=== PATIENT | male | born 1995 | race Caucasian/White ===

== ENCOUNTER 2018-06-25 05:57 | Inpatient (IN) | payer OTHER ==
[2018-06-25] MEDS ORDERED: Ketorolac Tromethamine 30 MG/ML VIAL ONE (06:31)
[2018-06-25] MEDS ORDERED: Bupivacaine/Epinephrine 0.25% 30 ML VIAL ONE (06:37)
[2018-06-25] MEDS ORDERED: Bupivacaine HCl 0.5%/Epinephrine 1:200,000/PF 30 ml Vial ONE (06:37)
[2018-06-25] MEDS ORDERED: Piperacillin/Tazobactam 3.375 GM in Sodium Chloride 0.9% 100 ML IVPB SCH (06:45)
--- NOTE | 2018-06-25 06:52 | HP ---
HISTORY OF PRESENT ILLNESS: Jaquan James is a 23-year-old male patient, [employer], suffering upper abdominal pain localizing to his right lower quadrant yesterday morning, pre sented to [facility]. CAT scan revealed changes consistent with appendicitis. White count slightly elevated. He was given intravenous antibiotics, fluids overnight and transferred this morning for laparoscopic video appendectomy. He spiked a fever to 102 degrees this morning. ALLERGIES: None. TOBACCO: None. ALCOHOL: Rarely. MEDICATIONS: None. PAST SURGICAL HISTORY: Tonsillectomy. PAST MEDICAL HISTORY: Noncontributory. REVIEW OF SYSTEMS: Ten-point noncontributory. PHYSICAL EXAMINATION: VITAL SIGNS: Temperature 98 degrees, heart rate 93, respiratory rate 16. HEAD, EYES, EARS, NOSE AND THROAT: Unremarkable. LUNGS: Clear to auscultation. CARDIAC: Regular rate and rhythm without murmur or gallop. ABDOMEN: Soft, tenderness in the right lower quadrant with guarding and rebound. Positive Rovsing s ign. EXTREMITIES: Unremarkable. ASSESSMENT AND PLAN: Acute appendicitis. Recommend laparoscopic video appendectomy. Risk of infect ion, bleeding, visceral injury explained, open operation risk explained, he consents.
[2018-06-25] MEDS ORDERED: Fentanyl 100 MCG/2 ML VIAL ONE (07:07)
[2018-06-25] MEDS ORDERED: Midazolam HCl 2 mg/2 ml Vial ONE (07:38)
[2018-06-25] MEDS ORDERED: Ondansetron HCl/PF 4 MG/2 ML Vial IVP PRN ×2 (08:04→08:11)
[2018-06-25] MEDS ORDERED: hydrALAZINE 20 MG/ML VIAL SLOW IVP PRN (08:04)
[2018-06-25] MEDS ORDERED: Ibuprofen 600 MG TAB PO PRN (08:07)
[2018-06-25] MEDS ORDERED: Acetaminophen 1,000 MG in Premix Bag 1 BAG IVPB PRN (08:07)
[2018-06-25] MEDS ORDERED: traMADol HCl 50 MG TAB PO PRN ×2 (08:07)
[2018-06-25] MEDS ORDERED: Acetaminophen 500 MG TAB PO PRN (08:07)
[2018-06-25] MEDS ORDERED: Promethazine HCl 25 MG/ML VIAL IM PRN (08:11)
[2018-06-25] MEDS ORDERED: Promethazine HCl 25 MG/ML VIAL SLOW IVP PRN (08:11)
--- NOTE | 2018-06-25 08:35 | OP ---
DATE OF PROCEDURE: 06/25/2018 PREOPERATIVE DIAGNOSES: Acute appendicitis with fever. POSTOPERATIVE DIAGNOSES: Acute appendicitis with fever. PROCEDURE: Laparoscopic video appendectomy. SURGEON: Misael Padilla M.D. ANESTHESIA: General. Local 0.5% Marcaine with epinephrine, 30 mL. FINDINGS: Acute appendicitis without rupture, although patient had a fever, a few hours before the o peration. DESCRIPTION OF PROCEDURE: The patient was taken to the operating room where under general anesthesia , Guan catheter was placed at the beginning of the procedure and removed at the end. Abdomen prepar ed with ChloraPrep and draped in routine fashion. Local anesthetic infiltrated into the skin and sub cutaneous tissue about each port site. Total of 30 mL volume used. Infraumbilical incision made and pneumoperitoneum to 15 mmHg obtained with the Veress needle, replacing it with a 5 port and video la paroscope inserted. Right lateral subcostal incision made and a 5-port placed. Suprapubic incision made and a 12-port placed. Appendix was acutely inflamed without rupture. Mesoappendix taken down w ith the LigaSure to the stump of the appendix, divided with Endo-JACK blue load stapler. Stapled ceca l stump was hemostatic and secured, as the appendix was placed in Endobag and removed. Suprapubic fa scia approximated with 0 Vicryl. Good hemostasis ensured. Abdominal cavity irrigated and irrigant e vacuated. All instruments removed and all skin incisions approximated with interrupted subdermal 4-0 Monocryl and DermaGlue applied.
[2018-06-25] MEDS: Sodium Chloride 0.9% 1,000 ML IV SCH ×3 (10:17→20:31)
[2018-06-25] MEDS: Famotidine 20 MG TAB PO SCH ×2 (10:19→20:31)
[2018-06-25] MEDS: Lactated Ringer's 1,000 ML IV SCH ×2 (10:23→17:41)
[2018-06-25] MEDS ORDERED: Succinylcholine Chloride 20 MG/ML 10 ml SYRINGE FS ONE (10:47)
[2018-06-25] MEDS ORDERED: Glycopyrrolate 0.2 MG/ML 5 ML SYRINGE ONE (10:47)
[2018-06-25] MEDS ORDERED: Ondansetron HCl/PF 4 MG/2 ML Vial ONE (10:47)
[2018-06-25] MEDS ORDERED: PHENYLEPHRINE-NS 100 MCG/ML 10 ML SYRINGE ONE (10:47)
[2018-06-25] MEDS ORDERED: PROPOFOL 200 MG/20 ML VIAL ONE (10:47)
[2018-06-25] MEDS: Piperacillin/Tazobactam 4.5 GM in Sodium Chloride 0.9% 100 ML IVPB SCH ×3 (13:04→23:02)
[2018-06-25] MEDS ORDERED: Enoxaparin Sodium 40 MG/0.4 ML SYRINGE SC SCH (21:00)
[2018-06-26] MEDS: Lactated Ringer's 1,000 ML IV SCH ×2 (01:19→07:20)
[2018-06-26] MEDS: Sodium Chloride 0.9% 1,000 ML IV SCH ×2 (01:19→07:21)
[2018-06-26] MEDS: Piperacillin/Tazobactam 4.5 GM in Sodium Chloride 0.9% 100 ML IVPB SCH (05:40)
[2018-06-26 08:38] LABS: Band 22 % (5-11); Eosinophils 2 % (0-10); Hemoglobin 14.4 g/dL (14.0-18.0); Lymphocytes 7 % (21-51); MDiff Complete? YES; Mean Corpuscular HGB CONC 33.8 g/dL (32.0-36.0); Mean Corpuscular Hemoglobin 31.1 pg (27.0-31.0); Mean Corpuscular Volume 92.2 fL (78.0-98.0); Monocytes 4 % (0-10); Neutrophil 65 % (42-75); Platelet Count 120 thou/uL (130-400); RBC Distribution Width 11.8 % (11.5-14.5); Red Blood Cell (RBC) Count 4.61 mill/uL (4.70-6.10)
--- NOTE | 2018-06-26 08:49 | PRG ---
DATE OF SERVICE: 06/26/2018 The patient has been afebrile postoperatively. He has not had any nausea or vomiting. PHYSICAL EXAMINATION: LUNGS: Clear to auscultation. CARDIAC: Regular rate and rhythm without murmur or gallop. ABDOMEN: Soft, nontender. EXTREMITIES: Unremarkable. Laparoscopic wounds well healed. ASSESSMENT AND PLAN: Tolerating diet. PLAN: Discharge home on Augmentin for 5 days. [id number] Tylenol, ibuprofen for pain, tramado l if necessary. Follow up in my office in 2-3 weeks. Note for school excusing him from class for th e last 3 days due to appendicitis, illness. Sent home with Augmentin due to fever even though no lanie dence of rupture or peritonitis.
[2018-06-26] MEDS ORDERED: Amoxicillin/Potassium Clav 500 MG TAB PO SCH (09:00)
[2018-06-26 12:30] VITALS: BP 153/90; TEMP 99.3
--- NOTE | 2018-06-26 13:02 | DIS ---
DISCHARGE DATE: 06/26/2018. DISCHARGE DIAGNOSIS: Acute appendicitis with fever preoperatively. PROCEDURES: Laparoscopic video appendectomy. HISTORY: A 23-year-old male who presented to the [facility] with a history of appendic itis. CAT scan confirmed. I was called late afternoon, Monday, and I checked with the operating shanna m and there were no OR late evening. Thus, he was kept at [facility] overnight, transferred to the hospital in the morning laparoscopic video appendectomy. FINDINGS AT OPERATION: Revealed advanced appendicitis without peritonitis without polyps without abs cess. He was kept in the hospital postoperatively due to preoperative fever to 102 degrees. He tierra ined afebrile and sent home on Augmentin for 5 days. DIET AND ACTIVITY: As tolerated. Follow up in my office in 2-3 weeks.
== END 2018-06-26 14:37 | disposition home or self-care (01) | DRG 343 ==
LOC: SDC 05:57 → SURG A 09:01
PROVIDERS: ADMIT Specialist; ATTEND Specialist
PROC: 0DTJ4ZZ Resection of Appendix, Percutaneous Endoscopic Approach (ICD-10-PCS; principal; 2018-06-25)
DX: K35.80 Unspecified acute appendicitis (principal)
CPT/HCPCS: 36415; 85025; 88304; J0131; J0670; J1650; J1885; J2250; J2405; J2543; J2704; J3010; J7050